=== PATIENT | male | born 1980 | race Caucasian/White ===

== ENCOUNTER 2017-07-24 09:49 | Emergency (ER) | payer BC ==
[~2017-07-24] VITALS: Ht 185.4 cm; Wt 113.4 kg
[2017-07-24 09:59] VITALS: Ht 185.4 cm; Wt 113.4 kg
[2017-07-24 12:41] VITALS: BP 138/78
== END 2017-07-24 12:41 | disposition home or self-care (01) ==
LOC: ED 09:49
DX: S16.1XXA Strain of muscle, fascia and tendon at neck level, initial encounter (principal); S39.012A Strain of muscle, fascia and tendon of lower back, initial encounter; R03.0 Elevated blood-pressure reading, without diagnosis of hypertension; V43.92XA Unspecified car occupant injured in collision with other type car in traffic accident, initial encounter; Y93.89 Activity, other specified; Y92.89 Other specified places as the place of occurrence of the external cause; Y99.8 Other external cause status
CPT/HCPCS: J1885